=== PATIENT | female | born 1935 | race Caucasian/White ===

== ENCOUNTER 2017-12-20 10:56 | Day surgery (SDC) | payer MEDICARE ==
[2017-12-20] VITALS (7 sets, daily range): BP systolic 99–125; BP diastolic 56–95
[~2017-12-20] VITALS: Ht 177.8 cm; Wt 79.8 kg
[2017-12-20] MEDS ORDERED: normal saline 1000ml 1,000 ML IV SCH ×2 (11:35→12:23)
[2017-12-20] MEDS ORDERED: heparin sodium, porcine/PF 100unit/ml 5ML syringe ICATH ONE (11:45)
[2017-12-20] MEDS ORDERED: fentaNYL/PF 50MCG/1 ML 2ML syringe IV PRN (11:45)
[2017-12-20] MEDS ORDERED: midazolam 2 mg/2 ml injection IV PRN (11:45)
[2017-12-20] MEDS ORDERED: LIDOcaine 1%/PF 5ML 10 MG/ML VIAL SQ ONE (11:45)
[2017-12-20] MEDS ORDERED: LACT1CAP65 PO (11:54)
[2017-12-20] MEDS ORDERED: FLUT5POW4 (11:54)
[2017-12-20] MEDS ORDERED: MYL80T PO (11:54)
[2017-12-20] MEDS ORDERED: LEVO25TA2 PO (11:54)
[2017-12-20] MEDS ORDERED: CHOL2000 PO (11:54)
[2017-12-20] MEDS ORDERED: MONT10TA24 PO (11:54)
[2017-12-20] MEDS ORDERED: FLO44IN IH (11:54)
[2017-12-20] MEDS ORDERED: SENN-161 PO (11:54)
[2017-12-20] MEDS ORDERED: MULT-16 PO (11:54)
[2017-12-20] MEDS ORDERED: FURO-150 PO (11:54)
[2017-12-20] MEDS ORDERED: DOCU100C41 PO (11:54)
[2017-12-20] MEDS ORDERED: POTA10TA19 PO (11:54)
[2017-12-20] MEDS ORDERED: OXAZEpam 15mg capsule PO ONE ×2 (12:47→12:50)
[2017-12-20] MEDS ORDERED: LIDOcaine 1%/PF 5ML 10 MG/ML VIAL ONE ×2 (13:01→13:04)
[2017-12-20] MEDS ORDERED: heparin sodium, porcine/PF 100unit/ml 5ML syringe ONE (13:04)
[2017-12-20] MEDS ORDERED: fentaNYL/PF 50MCG/1 ML 2ML syringe ONE (13:10)
[2017-12-20] MEDS ORDERED: midazolam 2 mg/2 ml injection ONE (13:10)
== END 2017-12-20 16:20 | disposition home or self-care (01) ==
LOC: SSTAY O 10:56
PROVIDERS: ATTEND Radiology Diagnostic Radiology
DX: C20 Malignant neoplasm of rectum (principal); J45.998 Other asthma; K21.9 Gastro-esophageal reflux disease without esophagitis; E03.9 Hypothyroidism, unspecified; Z85.3 Personal history of malignant neoplasm of breast; Z87.891 Personal history of nicotine dependence; Z88.1 Allergy status to other antibiotic agents; Z90.12 Acquired absence of left breast and nipple; Z88.8 Allergy status to other drugs, medicaments and biological substances; Z79.899 Other long term (current) drug therapy; Z98.890 Other specified postprocedural states
CPT/HCPCS: 36561; 76937; 77001; 99152; 99153; A6219; C1788; C1894; J1642; J2001; J2250; J3010; J7030; A4620